=== PATIENT | female | born 1945 | race Caucasian/White ===

== ENCOUNTER → 2022-10-17 13:38 | Outpatient (CLI) | payer OTHER, SELFPAY ==
--- NOTE | 2022-10-17 | DI.MRI.S_ITS ---
PROCEDURE: MR KNEE LT WO CON INDICATIONS: Pain in left knee TECHNIQUE: Noncontrast sagittal PD fast spin echo and T2 fast spin echo with fat saturation, sagittal 3-D FLASH with fat saturation; coronal T1 spin echo and PD fast spin echo with fat saturation, and axial PD fast spin echo with fat saturation through the knee. COMPARISON: [facility] [place], CR, XR KNEE 4+ VIEWS LEFT, 09/24/2022, 14:51. FINDINGS: Image quality: Excellent. Menisci: Signal abnormality involving posterior horn of medial meniscus is seen extending to inferior articulating surface suggestive of oblique tear. The lateral meniscus is intact. The meniscal root ligaments appear intact. Cruciate ligaments: The anterior and posterior cruciate ligaments appear intact. Medial structures: The medial collateral ligament appears mildly thickened. The posterior oblique ligament, semimembranosus tendon insertions, oblique popliteal ligament, and meniscocapsular junction appear intact. Visualized portions of the pes anserinus tendons appear normal. No abnormal bursal fluid. Lateral structures: The lateral collateral ligament, long and short heads of the biceps femoris tendon appear intact. The popliteus tendon appears normal; the popliteofibular ligament appears intact. Iliotibial band appears normal. Anterior structures: The quadriceps and patellar tendons appear intact. Patellar alignment is normal. No femoral trochlear dysplasia or ventral trochlear prominence. No edema in the infrapatellar fat pad. Bones and cartilage: No bone marrow contusions or fractures. 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 Joint space: There is small knee joint fluid. There is a tiny House's cyst. Normal appearing synovial plicae are incidentally noted. IMPRESSION: 1. Complex oblique tear involving posterior horn of medial meniscus extending to inferior articulating surface. The lateral meniscus is intact. 2. The cruciate ligaments are intact. 3. Low-grade MCL sprain. 4. [id number] tricompartmental osteoarthritis and chondromalacia most notably in medial femoral tibial compartment. No fracture or dislocation. Small joint effusion and a tiny bakers cyst. Dictated by: Ki Colin M.D. on 10/19/2022 at 12:04 Approved by: Ki Colin M.D. on 10/19/2022 at 12:06
== END ==
PROVIDERS: Referring Provider Physician Assistant; Visit Provider Physician Assistant
DX: S83.232A Complex tear of medial meniscus, current injury, left knee, initial encounter (principal); S83.412A Sprain of medial collateral ligament of left knee, initial encounter; M17.12 Unilateral primary osteoarthritis, left knee; M94.262 Chondromalacia, left knee; M25.462 Effusion, left knee; M25.562 Pain in left knee
CPT/HCPCS: 73721

== ENCOUNTER → 2022-11-03 11:59 | Outpatient (CLI) | payer OTHER, SELFPAY ==
[2022-11-03 12:54] LABS: Add Manual Diff / Slide Review NO; Basophils Absolute Auto 0 /uL (0-100); Basophils Percent Auto 0.8 % (0-2); Eosinophils Absolute Auto 100 /uL (0-450); Hemoglobin 10.5 g/dL (12.0-16.0); Lymphocytes Absolute Auto 1600 /uL (1100-4500); Lymphocytes Percent Auto 26.8 % (25-40); Mean Corpuscular Hemoglobin 23.8 PG (26-34); Mean Corpuscular Volume 74.3 fL (80-100); Monocytes Absolute Auto 800 /uL (0-900); Monocytes Percent Auto 13.1 % (3-14); Neutrophils Absolute Auto 3500 /uL (1500-7000); Neutrophils Percent Auto 58.3 % (50-75); Platelet Count 338 X10^3/uL (150-400); Red Blood Cell Count 4.43 X10^6/uL (4.0-5.2); Red Cell Distribution Width 16.5 % (11.6-14.8)
[2022-11-03 13:59] LABS: BUN Creatinine Ratio 17.5 (6-22); Blood Urea Nitrogen 14 mg/dL (7-17); Calcium 9.3 mg/dL (8.4-10.2); Carbon Dioxide 31 mmol/L (22-32); Chloride 102 mmol/L (98-107); Estimated Glomerular Filt Rate > 60 mL/min (>60); Glucose 92 mg/dL (80-110); HEMOLYSIS < 15 (0-50); Potassium 4.6 mmol/L (3.4-5.1); Sodium 139 mmol/L (137-145)
[2022-11-03 15:33] LABS: Appearance Urine UA CLEAR; Bilirubin Urine UA NEGATIVE (NEGATIVE); Color Urine UA YELLOW; Glucose Urine UA NEGATIVE (Negative); Ketones Urine UA NEGATIVE (NEGATIVE); Leukocyte Esterase Urine UA NEGATIVE (NEGATIVE); Nitrite Urine UA NEGATIVE (Negative); Occult Blood Urine UA NEGATIVE (Negative); Protein Urine UA NEGATIVE (Negative); Specific Gravity Urine UA 1.025 (1.000-1.035); Urobilinogen Urine UA 0.2 E.U./dL (0.2)
[2022-11-03 15:34] LABS: pH Urine UA 5.5 (4.5-8.0)
[2022-11-03 15:51] LABS: Bacteria Urine None Seen; Culture Indicated Urine Cult Not Indicated; RBC Urine 0-1/HPF (0-5/HPF); Squamous Epithelial Cell Urine 1-5 /HPF (0-5/HPF); WBC Urine None Seen (0-5/HPF)
[2022-11-04 03:36] LABS: Labcorp Hemoglobin (Hb) A1c 6.1 % (4.8-5.6)
== END ==
PROVIDERS: Referring Provider Orthopaedic Surgery; Visit Provider Orthopaedic Surgery
DX: Z01.818 Encounter for other preprocedural examination (principal); R73.9 Hyperglycemia, unspecified; Z01.812 Encounter for preprocedural laboratory examination; N39.0 Urinary tract infection, site not specified
CPT/HCPCS: 36415; 80048; 81001; 83036; 85025; 93005; 93010

== ENCOUNTER 2022-12-11 14:37 | Observation (INO) | payer OTHER, SELFPAY ==
[2022-12-11] VITALS (17 sets, daily range): BP systolic 110–137; BP diastolic 59–79; PULSE 69–95; RESP 11–24; TEMP 36–36.6; O2SAT 93–100; BMI 25.6
[2022-12-11 15:17] LABS: Add Manual Diff / Slide Review NO; Basophils Absolute Auto 100 /uL (0-100); Basophils Percent Auto 0.9 % (0-2); Eosinophils Absolute Auto 100 /uL (0-450); Eosinophils Percent Auto 1.8 % (2-4); Hematocrit 23.5 % (36-46); Hemoglobin 7.8 g/dL (12.0-16.0); Lymphocytes Absolute Auto 1400 /uL (1100-4500); Lymphocytes Percent Auto 17.6 % (25-40); Mean Corpuscular HGB Conc 33.3 % (30-36); Mean Corpuscular Volume 72.1 fL (80-100); Monocytes Absolute Auto 900 /uL (0-900); Monocytes Percent Auto 11.8 % (3-14); Neutrophils Absolute Auto 5400 /uL (1500-7000); Neutrophils Percent Auto 67.9 % (50-75); Platelet Count 550 X10^3/uL (150-400); Red Blood Cell Count 3.26 X10^6/uL (4.0-5.2); Red Cell Distribution Width 18.8 % (11.6-14.8); White Blood Cell Count 7.9 X10^3/uL (4.5-11.0)
[2022-12-11 15:27] LABS: PTT Partial Thromboplastin Tim 28 SECONDS (26-36)
[2022-12-11 15:28] LABS: Alanine Aminotransferase 20 IU/L (<35); Albumin 3.9 g/dL (3.5-5.0); Albumin Globulin Ratio 1.3 (1.0-2.8); Alkaline Phosphatase 166 U/L (38-126); Aspartate Aminotransferase 29 IU/L (14-36); BUN Creatinine Ratio 20.2 (6-22); Bilirubin Total 0.3 mg/dL (0.2-1.3); Blood Urea Nitrogen 18 mg/dL (7-17); Calcium 9.5 mg/dL (8.4-10.2); Carbon Dioxide 28 mmol/L (22-32); Chloride 98 mmol/L (98-107); Estimated Glomerular Filt Rate > 60 mL/min (>60); Globulin 3.1 g/dL (1.7-4.1); Glucose 127 mg/dL (80-110); HEMOLYSIS < 15 (0-50); Potassium 3.5 mmol/L (3.4-5.1); Sodium 135 mmol/L (137-145)
[2022-12-11] MEDS: PANTOPRAZOLE 40 MG VIAL 80 MG IV (15:30)
[2022-12-11] MEDS: ONDANSETRON 4 MG/2 ML INJ IV (15:30)
--- NOTE | 2022-12-11 15:50 | ED.GIBLEED ---
HPI - GI Bleed General Chief complaint: GI Bleed Stated complaint: BP 116/82 now 92/59 Time Seen by Provider: 12/11/22 15:18 Source: patient Mode of arrival: Wheelchair History of Present Illness HPI Narrative: 77-year-old female. Does take anti-inflammatories and also aspirin. Within the past month had a left total knee replacement. She stated that since that time she is been taking ibuprofen and also aspirin per recommendations of her orthopedic surgeon. She states that she is been having dark colored stool since the surgery that has been worsening over the past couple days. She states she is getting lightheaded when she stands up. Becoming dizzy. It is not every time she stands up but she was not able to go to physical therapy during her most recent appointment because of how she was feeling. She denies chest pain. No prior abdominal surgeries. She denies any vomiting of blood. No blood in her urine. Related Data Allergies Allergy/AdvReac Type Severity Reaction Status Date / Time Sulfa (Sulfonamide Allergy Hives Verified 12/11/22 14:47 Antibiotics) Review of Systems Constitutional Constitutional: Reports system reviewed and no additional complaints, except as documented Cardiovascular Cardiovascular: Reports system reviewed and no additional complaints, except as documented Respiratory Respiratory: Reports system reviewed and no additional complaints, except as documented Gastrointestinal Gastrointestinal: Reports system reviewed and no additional complaints, except as documented Integumentary/Breasts Skin/Breast: Reports system reviewed and no additional complaints, except as documented Neurologic Neurologic: Reports system reviewed and no additional complaints, except as documented Hematologic/Lymphatic On Anticoagulants: No Patient History Social History Smoking Status: Never smoker Smoking Status: Never smoker alcohol intake frequency: holidays/special occasions only Substance Use Type: does not use Exam Initial Vital Signs Initial Vital Signs: Vital Signs Temperature 97.5 F L 12/11/22 14:40 Pulse Rate 89 12/11/22 14:40 Respiratory Rate 18 12/11/22 14:40 Blood Pressure 110/65 12/11/22 14:40 Pulse Oximetry 98 12/11/22 14:40 Oxygen Delivery Method Room Air 12/11/22 14:40 HENMT Head: normal to inspection and normocephalic Resp Effort & Inspection: normal respiratory effort Auscultation: clear to auscultation bilaterally Cardio Rate: regular rate Rhythm: regular rhythm GI Inspection: normal to inspection Palpation: soft and No tender Neuro General: patient alert, patient awake, patient oriented x3 and moves all extremities Extrem General: normal to inspection and capillary refill normal Course Orders Ordered: ED Orders 12/11/22 14:00 Complete Blood Count AUTO DIFF Stat Comprehensive Metabolic Panel Stat PTT Partial Thromboplastin Chad Stat Packed Cells Stat Prothrombin Time INR Stat Type and Screen Stat 12/11/22 14:48 EKG-12 Lead Stat 12/11/22 16:40 Consult to General Surgery Stat Ondansetron HCl (Ondansetron 4 Mg/2 Ml Inj) 4 mg IV NOW PRN PRN Reason: Nausea And Vomiting Last Admin: 12/11/22 15:30 Dose: 4 mg Documented By: CARROLL Ondansetron HCl (Ondansetron 4 Mg Odt) 4 mg SL NOW PRN PRN Reason: Nausea And Vomiting Discontinued Medications Pantoprazole Sodium (Pantoprazole 40 Mg Vial) 80 mg IV NOW ONE Stop: 12/11/22 14:49 Last Admin: 12/11/22 15:30 Dose: 80 mg Documented By: CARROLL Vital Signs Vital signs: Vital Signs - 8 hr 12/11/22 14:40 12/11/22 14:58 12/11/22 14:58 Temperature 97.5 F L Pulse Rate 89 93 H Respiratory Rate 18 Blood Pressure 110/65 121/70 Pulse Oximetry 98 98 Oxygen Delivery Method Room Air 12/11/22 15:00 12/11/22 15:00 12/11/22 15:30 Temperature Pulse Rate 95 H Respiratory Rate 16 Blood Pressure 124/69 122/68 Pulse Oximetry 97 Oxygen Delivery Method 12/11/22 15:30 12/11/22 16:04 12/11/22 16:06 Temperature Pulse Rate 84 92 H 82 Respiratory Rate 23 19 18 Blood Pressure Pulse Oximetry 96 96 Oxygen Delivery Method 12/11/22 16:06 12/11/22 16:32 12/11/22 16:30 Temperature 97.8 F Pulse Rate 79 Respiratory Rate 16 Blood Pressure 121/63 113/61 113/61 Pulse Oximetry Oxygen Delivery Method 12/11/22 16:30 Temperature Pulse Rate 77 Respiratory Rate 20 Blood Pressure Pulse Oximetry 97 Oxygen Delivery Method MDM - GI Bleed Lab Data Attestation: I reviewed the patient's lab results. 12/11/22 14:00 12/11/22 14:00 Labs: Lab Results 12/11/22 12/11/22 12/11/22 Range/Units 14:00 14:00 14:00 WBC 7.9 (4.5-11.0) X10^3/uL RBC 3.26 L (4.0-5.2) X10^6/uL Hgb 7.8 L (12.0-16.0) g/dL Hct 23.5 L (36-46) % MCV 72.1 L (80-100) fL MCH 24.0 L (26-34) PG MCHC 33.3 (30-36) % RDW 18.8 H (11.6-14.8) % Plt Count 550 H (150-400) X10^3/uL Neut % (Auto) 67.9 (50-75) % Lymph % (Auto) 17.6 L (25-40) % Victoria % (Auto) 11.8 (3-14) % Eos % (Auto) 1.8 L (2-4) % Baso % (Auto) 0.9 (0-2) % Neut # (Auto) 5400 (8746-8593) /uL Lymph # (Auto) 1400 (8277-1390) /uL Victoria # (Auto) 900 (0-900) /uL Eos # (Auto) 100 (0-450) /uL Baso # (Auto) 100 (0-100) /uL PT 12.0 (10.1-12.7) SECONDS INR 1.0 (0.9-1.3) APTT 28 (26-36) SECONDS Sodium 135 L (137-145) mmol/L Potassium 3.5 (3.4-5.1) mmol/L Chloride 98 (98-107) mmol/L Carbon Dioxide 28 (22-32) mmol/L BUN 18 H (7-17) mg/dL Creatinine 0.89 (0.52-1.04) mg/dL Estimated GFR > 60 (>60) mL/min BUN/Creatinine Ratio 20.2 (6-22) Glucose 127 H (80-110) mg/dL Calcium 9.5 (8.4-10.2) mg/dL Total Bilirubin 0.3 (0.2-1.3) mg/dL AST 29 (14-36) IU/L ALT 20 (<35) IU/L Alkaline Phosphatase 166 H (38-126) U/L Total Protein 7.0 (6.3-8.2) g/dL Albumin 3.9 (3.5-5.0) g/dL Globulin 3.1 (1.7-4.1) g/dL Albumin/Globulin Ratio 1.3 (1.0-2.8) Blood Type Antibody Screen Crossmatch 12/11/22 Range/Units 14:00 WBC (4.5-11.0) X10^3/uL RBC (4.0-5.2) X10^6/uL Hgb (12.0-16.0) g/dL Hct (36-46) % MCV (80-100) fL MCH (26-34) PG MCHC (30-36) % RDW (11.6-14.8) % Plt Count (150-400) X10^3/uL Neut % (Auto) (50-75) % Lymph % (Auto) (25-40) % Victoria % (Auto) (3-14) % Eos % (Auto) (2-4) % Baso % (Auto) (0-2) % Neut # (Auto) (0254-7264) /uL Lymph # (Auto) (9680-6662) /uL Victoria # (Auto) (0-900) /uL Eos # (Auto) (0-450) /uL Baso # (Auto) (0-100) /uL PT (10.1-12.7) SECONDS INR (0.9-1.3) APTT (26-36) SECONDS Sodium (137-145) mmol/L Potassium (3.4-5.1) mmol/L Chloride (98-107) mmol/L Carbon Dioxide (22-32) mmol/L BUN (7-17) mg/dL Creatinine (0.52-1.04) mg/dL Estimated GFR (>60) mL/min BUN/Creatinine Ratio (6-22) Glucose (80-110) mg/dL Calcium (8.4-10.2) mg/dL Total Bilirubin (0.2-1.3) mg/dL AST (14-36) IU/L ALT (<35) IU/L Alkaline Phosphatase (38-126) U/L Total Protein (6.3-8.2) g/dL Albumin (3.5-5.0) g/dL Globulin (1.7-4.1) g/dL Albumin/Globulin Ratio (1.0-2.8) Blood Type A Negative Antibody Screen Negative Crossmatch See Detail Urine Dip Bedside Urine Glucose Negative Bedside Urine Bilirubin - Negative Bedside Urine Ketone - Negative Urine Specific [place] 1.010 Bedside Urine Occult Blood - Negative Bedside Urine pH 6.0 Bedside Urine Protein - Negative Bedside Urine Urobilinogen - Negative Bedside Urine Nitrite - Negative Bedside Urine Leukocytes - Negative Esterase ECG Data Attestation: I personally reviewed and interpreted this ECG as follows: Interpretation: Sinus rhythm Ventricular rate 94 Normal axis Normal QRS Nonspecific ST T wave changes MDM Narrative Medical decision making narrative: Compared to H&H 1 month ago patient is significantly decreased today. She is never had a blood transfusion in the past. We discussed the risks and benefits of this and I recommended that we give her a blood transfusion as this could very well be causing the symptoms that she is having. This is most likely caused by the anti-inflammatories and the aspirin that she takes. Because she is having melena and requiring a blood transfusion initially in the hospital would be beneficial. Discussed the case with Dr. Watt hospitalist on-call who will admit. Discussed need for admission with the patient who expressed understanding and agreement as well. Also discussed the case with Dr. Christie is on-call for General surgery who will see the patient after admission Discharge Plan Departure Patient Disposition: Admitted As Inpatient Clinical Impression: Acute GI bleeding, Symptomatic anemia Admit Date/Time: 12/11/22 16:43 Admit Provider: Alli Watt
--- NOTE | 2022-12-11 17:47 | P.HP_ITS ---
History of Present Illness History of Present Illness Date Patient Seen: 12/11/22 Time Patient Seen: 17:30 Chief complaint: BP 116/82 now 92/59 Narrative: Ms. Schultz is a 77W with PMH iron deficiency anemia, hiatal hernia, GERD, L TKA a couple weeks ago who presents to the hospital with black stools and fatigue. She notes that she has previously been diagnosed with anemia. She had to have iron infusions in the past, but is currently not on iron. She has had multiple EGD and colo in the past which have noted gastric ulcer and hiatal hernia. She has had a capsule endoscopy previously. She had a left TKA a couple weeks ago, prior to this she says her hemoglobin was in the 12s. After she was taking aspirin BID for dvt ppx, she was takin g400mg ibuproen q4, thought this has been weaned down. She has developed some left upper abdominal tenderness. She has noted new black stools for a week. She has fatigue, shortness of breath, dizzy/lightheaded. No vomiting blood, no brbpr. She was here in [place] seeing ortho and PT and felt poorly so presented to the ED. In the ED workup was done, vitals notable for afebrile, heart rate 80s, blood pressure 110s/60s. Labs reviewed and notable for WBC 7.9, hgb 7.8, plts 550. BUN 18, creatinine 0.89. She was ordered for blood and protonix and admitted for further treatment. [facility] Social History Smoking Status: Never smoker Meds Home Medications and Allergies Allergies Allergy/AdvReac Type Severity Reaction Status Date / Time Sulfa (Sulfonamide Allergy Hives Verified 12/11/22 14:47 Antibiotics) Review of Systems Review of Systems Narrative: 14 systems reviewed and negative aside from what is noted in HPI Exam Vital Signs (past 8 hours): - 12/11/22 14:40 12/11/22 14:58 12/11/22 14:58 Temperature 97.5 F L Pulse Rate 89 93 H Respiratory Rate 18 Blood Pressure 110/65 121/70 Pulse Oximetry 98 98 Oxygen Delivery Method Room Air 12/11/22 15:00 12/11/22 15:00 12/11/22 15:30 Temperature Pulse Rate 95 H Respiratory Rate 16 Blood Pressure 124/69 122/68 Pulse Oximetry 97 Oxygen Delivery Method 12/11/22 15:30 12/11/22 16:04 12/11/22 16:06 Temperature Pulse Rate 84 92 H 82 Respiratory Rate 23 19 18 Blood Pressure Pulse Oximetry 96 96 Oxygen Delivery Method 12/11/22 16:06 12/11/22 16:32 12/11/22 16:49 Temperature 97.8 F 97.9 F Pulse Rate 79 79 Respiratory Rate 16 16 Blood Pressure 121/63 113/61 117/65 Pulse Oximetry Oxygen Delivery Method 12/11/22 16:30 12/11/22 16:30 12/11/22 16:50 Temperature Pulse Rate 77 Respiratory Rate 20 Blood Pressure 113/61 117/65 Pulse Oximetry 97 Oxygen Delivery Method 12/11/22 16:50 12/11/22 17:00 12/11/22 17:00 Temperature Pulse Rate 80 78 Respiratory Rate 24 11 L Blood Pressure 110/59 L Pulse Oximetry 99 98 Oxygen Delivery Method Oxygen Delivery Method Room Air Narrative Exam Narrative: GEN: no acute dsitress CV: regular rate and rhythm PULM: clear bilaterally ABD: soft, mild LUQ tenderness, no rebound/guarding EXT: warm and well perfused, no edema Objective Labs 12/11/22 14:00 12/11/22 14:00 Labs: Laboratory Results - last 24 hr 12/11/22 12/11/22 12/11/22 14:00 14:00 14:00 WBC 7.9 RBC 3.26 L Hgb 7.8 L Hct 23.5 L MCV 72.1 L MCH 24.0 L MCHC 33.3 RDW 18.8 H Plt Count 550 H Neut % (Auto) 67.9 Lymph % (Auto) 17.6 L Wright % (Auto) 11.8 Eos % (Auto) 1.8 L Baso % (Auto) 0.9 Neut # (Auto) 5400 Lymph # (Auto) 1400 Wright # (Auto) 900 Eos # (Auto) 100 Baso # (Auto) 100 PT 12.0 INR 1.0 APTT 28 Sodium 135 L Potassium 3.5 Chloride 98 Carbon Dioxide 28 BUN 18 H Creatinine 0.89 Estimated GFR > 60 BUN/Creatinine Ratio 20.2 Glucose 127 H Calcium 9.5 Total Bilirubin 0.3 AST 29 ALT 20 Alkaline Phosphatase 166 H Total Protein 7.0 Albumin 3.9 Globulin 3.1 Albumin/Globulin Ratio 1.3 Blood Type Antibody Screen Crossmatch 12/11/22 14:00 WBC RBC Hgb Hct MCV MCH MCHC RDW Plt Count Neut % (Auto) Lymph % (Auto) Wright % (Auto) Eos % (Auto) Baso % (Auto) Neut # (Auto) Lymph # (Auto) Wright # (Auto) Eos # (Auto) Baso # (Auto) PT INR APTT Sodium Potassium Chloride Carbon Dioxide BUN Creatinine Estimated GFR BUN/Creatinine Ratio Glucose Calcium Total Bilirubin AST ALT Alkaline Phosphatase Total Protein Albumin Globulin Albumin/Globulin Ratio Blood Type A Negative Antibody Screen Negative Crossmatch See Detail Assessment & Plan Assessment & Plan narrative: 1. Acute symptomatic blood loss anemia from likely upper GI bleed -hemoglobin significantly down from recent at 7.8 -suspect etiology may be secondary to peptic inflammation from nsaids, aspirin, and hernia/GERD -transfused in the ED -trend hemoglobin closely -PPI BID -consult surgery for EGD -hold ASA/nsaids, lovenox for now 2. Recent L TKA -holding ASA for now -could consider lovenox on dc for dvt ppx if evidence of upper GI bleed I have discussed plan and obtained history from patient and family at bedside. I have discussed plan of care with ED physician, surgeon, and bedside nurse. I have reviewed labs, imaging. CODE: Full Proxy: Garry Schultz, Quality [facility] [place]s 'Current medications' to include all prescriptions, [id number] products, herbals, cannabis/cannabidiol products, and vitamin/mineral/dietary (nutritional) supplements. I have utilized all available resources to obtain, update, or review the patient?s current medications. [If Yes, STOP here]: Yes
[2022-12-11] MEDS: PANTOPRAZOLE 40 MG VIAL IV (20:11)
[2022-12-12] VITALS (12 sets, daily range): BP systolic 109–146; BP diastolic 50–80; PULSE 64–80; RESP 12–17; TEMP 35.7–36.6; O2SAT 92–100
--- NOTE | 2022-12-12 | PATH_ITS ---
[facility] Accession Number: [id number] No. of containers..01 Tissue . 01 Material submitted: . stomach - STOMACH BX . 01 Diagnosis: Stomach, Biopsy: Acute erosive gastritis. Negative for Helicobacter organisms by immunohistochemistry. Negative for intestinal metaplasia. Negative for dysplasia or malignancy. [facility] 12/18/2022 1246 Local . 01 Electronically signed: . Ricky Adler MD, PhD, Pathologist NPI- [id number] . 01 Gross description: . STOMACH BX: Received in formalin is 2 fragment(s) of veloz, soft tissue measuring 0.4 x 0.2 x 0.2 cm to 0.3 x 0.2 x 0.2 cm submitted entirely in 1 cassette(s) /AAY 12/16/2022 0541 Local . 01 Microscopic: . An immunohistochemical stain was performed to evaluate for Helicobacter organisms and is negative. The control stain showed appropriate reactivity. . * This test was developed and its performance characteristics determined by [facility]. It has not been cleared or approved by the U.S. Food and Drug Administration. The FDA has determined that such clearance or approval is not necessary. This test is used for clinical purposes. It should not be regarded as investigational or for research. . 01 Pathologist provided ICD-10: K29.70 . 01 CPT . 715743, [id number] Specimen Comment: A courtesy copy of this report has been sent to [facility] Pathology Performed at: 01 [facility] [address] [place] [address], [place], [place] [id number] MD Neville Hussein MD Phone: [phone]
[2022-12-12 05:24] LABS: Add Manual Diff / Slide Review NO; Basophils Absolute Auto 100 /uL (0-100); Eosinophils Absolute Auto 200 /uL (0-450); Eosinophils Percent Auto 3.1 % (2-4); Hematocrit 30.7 % (36-46); Hemoglobin 10.1 g/dL (12.0-16.0); Lymphocytes Absolute Auto 1400 /uL (1100-4500); Mean Corpuscular HGB Conc 32.8 % (30-36); Mean Corpuscular Hemoglobin 24.7 PG (26-34); Mean Corpuscular Volume 75.2 fL (80-100); Monocytes Absolute Auto 800 /uL (0-900); Monocytes Percent Auto 11.9 % (3-14); Neutrophils Absolute Auto 4300 /uL (1500-7000); Platelet Count 485 X10^3/uL (150-400); Red Blood Cell Count 4.08 X10^6/uL (4.0-5.2); White Blood Cell Count 6.8 X10^3/uL (4.5-11.0)
[2022-12-12 05:35] LABS: BUN Creatinine Ratio 15.7 (6-22); Blood Urea Nitrogen 14 mg/dL (7-17); Calcium 9.4 mg/dL (8.4-10.2); Carbon Dioxide 29 mmol/L (22-32); Chloride 103 mmol/L (98-107); Estimated Glomerular Filt Rate > 60 mL/min (>60); Glucose 96 mg/dL (80-110); HEMOLYSIS < 15 (0-50); Potassium 4.5 mmol/L (3.4-5.1); Sodium 138 mmol/L (137-145)
[2022-12-12] MEDS: PANTOPRAZOLE 40 MG VIAL IV (08:03)
--- NOTE | 2022-12-12 10:43 | CM.DANOTE ---
Addendum entered by NICOLE Tellez 12/12/22 10:47: ADD: Indp at baseline, has been using a FWW since having knee surgery. Patient says she needs to get the other knee done too Original Note: Initial DCP Assessment Note Pt is a 77yo female, resident of [place], presents from her Ortho/PT appt with low blood pressure, anemia, transfused with 2 units in the ER before admission to the [facility] PCP: Unknown Payer: [facility] Met w/patient this morning to introduce self and role. Patient had a knee replacement two weeks ago (outpatient surgery) and has been recovering at home w/spouse's assistance as needed. 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 CM team will plan to follow closely in case any DC needs or concerns arise. NICOLE Martinez Discharge Planning/Care Management CM Discharge Assessment Start: 12/12/22 10:41 Freq: Status: Active Protocol: Document 12/12/22 10:41 RICHARD (Rec: 12/12/22 10:43 RICHARD [id number]) Discharge Planning Assessment Assigned Room Worker NICOLE Stephens DPOA/Assigned Designee Name Garry Schultz, spouse Contact Information [phone] Advance Directives? No History Provided By Patient,Medical Record Prior Living Arrangements House Household Members spouse Type of transporation used prior to Drives own vehicle admit Independent with ADL's Yes Is patient alert and oriented? Yes Barriers to Discharge No Discharge Plan Home Transportation Arrangement Spouse Referrals Initiated None needed
[2022-12-12] MEDS: SODIUM CHLORIDE 0.9% 1,000 ML 125 ML IV (10:47)
--- NOTE | 2022-12-12 10:53 | PM.CN ---
History of Present Illness Consult details Date Patient Seen: 12/12/22 Time Patient Seen: 11:18 Chief complaint: BP 116/82 now 92/59 Reason for consult: GI bleed, black tarry stool, NSAID use Requesting provider: Alli Watt Narrative: 77-year-old female who presents to the emergency room. Her chief it is black tarry stools lightheadedness and feeling faint and weak. She has a known hiatal hernia and sees a internal medicine physician assistant named Rangel Worrell at [facility] near [place]. She is up-to-date on her screening colonoscopies and has had upper endoscopies frequently as well. Her last upper endoscopy was 2-3 years ago. Her mother had colon cancer and her father of stomach cancer, so she is regular with her screening. She has had anemia before and full workups for this. About 2 years ago her hemoglobin was low and she underwent capsule endoscopy in addition to EGD and colonoscopy. Ultimately the hiatal hernia and a small ulcer was identified as the probable source of the problem and she was given iron infusion under the care of Dr. Chun at [facility] resulting in her hemoglobin increasing to 12. About 3 weeks ago now she had a knee replacement done here at [facility] by Анна Sanchez. Preoperatively her hemoglobin was 10.7 so she knew that perhaps there was something beforehand but the decision was made to proceed with the surgery. She was doing well immediately postoperatively for at least a week. She does not like taking strong narcotic medication(or any medication at all for that matter) and so it was advised she begin taking Tylenol ibuprofen and an 81 mg aspirin daily. About a week after surgery she started to notice some black stools that were familiar to her from previous episodes. She is not on any antacid medication. In the past she is taken omeprazole only as needed. She noticed that she was progressively more faint and tired over the preceding week. And she had an episode of feeling lightheaded and faint about 1 week prior to her presentation. She thought perhaps it was just part of her recovery from surgery at that time. She had another episode about 2 days ago in her kitchen that she felt coming on so quickly that she could not go to lay down she had to sit down on the floor. She was sitting on the floor for about 35 minutes before she or her was able to get her up and move around. After this episode she came to [facility] ER for evaluation. She was found to have hemoglobin of 6.8 but though remained lightheaded was not tachycardic or hypotensive. She received a blood transfusion in the emergency room of either 1 or 2 units. Meds Home Medications and Allergies Home Medications Medication Instructions Recorded Confirmed Type hydrochlorothiazide 12.5 mg tablet 12.5 mg PO DAILY 12/11/22 12/11/22 History lisinopril 20 mg tablet 20 mg PO DAILY 12/11/22 12/11/22 History oxycodone 5 mg tablet 5 mg PO Q4-6H PRN Pain, Moderate 12/11/22 12/11/22 History Allergies Allergy/AdvReac Type Severity Reaction Status Date / Time Sulfa (Sulfonamide Allergy Hives Verified 12/11/22 14:47 Antibiotics) Exam Vital Signs (past 8 hours): - 12/12/22 05:50 12/12/22 08:31 Temperature 96.5 F L 96.7 F L Pulse Rate 77 72 Respiratory Rate 16 16 Blood Pressure 129/80 126/77 Pulse Oximetry 97 96 Oxygen Flow Rate 0 0 Oxygen Delivery Method Room Air Oxygen Flow Rate 0 Const General: cooperative, healthy appearing, comfortable and No acute distress Orientation: alert, awake and oriented x3 HENMT Head: normal to inspection Mouth: oral mucosae normal Eyes General: appearance normal, both eyes and all related structures Resp Effort & Inspection: normal respiratory effort and able to speak in complete sentences Cardio Pulses: radial pulses present GI Palpation: soft and tender (Mild epigastric tenderness) Extrem Other: Left Knee replacement wound is clean dry and intact. mild lower extremity edema Objective Labs 12/12/22 04:55 12/12/22 04:55 Labs: Laboratory Results - last 24 hr 12/11/22 12/11/22 12/11/22 14:00 14:00 14:00 WBC 7.9 RBC 3.26 L Hgb 7.8 L Hct 23.5 L MCV 72.1 L MCH 24.0 L MCHC 33.3 RDW 18.8 H Plt Count 550 H Neut % (Auto) 67.9 Lymph % (Auto) 17.6 L [place] % (Auto) 11.8 Eos % (Auto) 1.8 L Baso % (Auto) 0.9 Neut # (Auto) 5400 Lymph # (Auto) 1400 [place] # (Auto) 900 Eos # (Auto) 100 Baso # (Auto) 100 PT 12.0 INR 1.0 APTT 28 Sodium 135 L Potassium 3.5 Chloride 98 Carbon Dioxide 28 BUN 18 H Creatinine 0.89 Estimated GFR > 60 BUN/Creatinine Ratio 20.2 Glucose 127 H Calcium 9.5 Total Bilirubin 0.3 AST 29 ALT 20 Alkaline Phosphatase 166 H Total Protein 7.0 Albumin 3.9 Globulin 3.1 Albumin/Globulin Ratio 1.3 Blood Type Antibody Screen Crossmatch 12/11/22 12/12/22 12/12/22 14:00 04:55 04:55 WBC 6.8 RBC 4.08 Hgb 10.1 L Hct 30.7 L MCV 75.2 L D MCH 24.7 L MCHC 32.8 RDW 18.0 H Plt Count 485 H Neut % (Auto) 63.0 Lymph % (Auto) 21.0 L [place] % (Auto) 11.9 Eos % (Auto) 3.1 Baso % (Auto) 1.0 Neut # (Auto) 4300 Lymph # (Auto) 1400 [place] # (Auto) 800 Eos # (Auto) 200 Baso # (Auto) 100 PT INR APTT Sodium 138 Potassium 4.5 Chloride 103 Carbon Dioxide 29 BUN 14 Creatinine 0.89 Estimated GFR > 60 BUN/Creatinine Ratio 15.7 Glucose 96 Calcium 9.4 Total Bilirubin AST ALT Alkaline Phosphatase Total Protein Albumin Globulin Albumin/Globulin Ratio Blood Type A Negative Antibody Screen Negative Crossmatch See Detail PFSH Social History household members: spouse Tobacco & Substance Use Smoking Status: Never smoker Assessment & Plan Assessment and plan (1) Acute GI bleeding: Status: Acute Plan I discussed the risks benefits and alternatives of EGD with Ms. Schultz who has had many before understands the process as well as the risks quite well. She would like to proceed today. She wants to understand what the diagnosis is and make sure that there is no cancer or anything concerning in her esophagus or stomach. She specifically asks for me to biopsy anything that looks abnormal. She told a story about her father stomach cancer having been identified and described with thickened mucosa a year prior to his diagnosis because though they saw the thickened mucosa it was never biopsied. Will proceed with EGD today
--- NOTE | 2022-12-12 13:01 | P.OP.EGD_ITS ---
Operative Date/Time/Diagnoses Date of procedure: 12/12/22 Time of procedure: 13:01 Pre-op diagnosis: GI bleeding, melena NSAID use Post-op diagnosis: same Procedure & Clinicians Study performed: EGD and biopsy Same procedure as scheduled: Yes Indications: Black tarry stools for at least a week with decreased hemoglobin lightheadedness. NSAID use since knee replacement 3 weeks ago Surgeon: Blanche Christie Procedure Notes Procedure in detail: Patient was taken to the endoscopy suite and placed supine. A time-out was performed. With the help of anesthesiologist conscious sedation was induced and monitored throughout the procedure. A bite block was placed. The EGD scope was placed into the mouth and advanced into the esophagus without difficulty. The esophagus appeared appeared normal photographs were obtained. There was a large hiatal hernia that was seen and photographed as well. Upon entry into the intra-abdominal portion of the stomach severe gastritis was demonstrated. There were several very small punctate ulcers. This was photographed and biopsied. The pylorus appeared normal this was photographed, the duodenum was entered and photographed it also appeared normal. The scope was then withdrawn into the stomach and retroflexed to obtain some additional photographs of the large hiatal hernia. There was no irritation or abnormality that of concern surrounding the hiatal hernia. The scope was then withdrawn. The patient tolerated the procedure well and went in good condition to the postoperative care unit. Findings: gastritis Specimen(s): other (Gastritis and small ulcers were biopsied) Impression: This looks like NSAID related gastritis. There was no active bleeding. Post-procedure Recommendations: No ASA/NSAIDs and Start medication(s) (Protonix 2-4 weeks) Plan for aftercare: I would recommend starting and maintaining on Protonix discontinuing use of NSAIDs and following up with her poacher wringer operator in 2-4 weeks if that is possible. If not we can see her at [facility] as well in follow-up. I discussed the above recommendations with her who was waiting in the room for her today.
--- NOTE | 2022-12-12 14:25 | PM.DS.1 ---
History of Present Illness History of Present Illness Chief complaint: BP 116/82 now 92/59 Narrative: Per history and physical: Ms. Schultz is a 77W with PMH iron deficiency anemia, hiatal hernia, GERD, L TKA a couple weeks ago who presents to the hospital with black stools and fatigue. She notes that she has previously been diagnosed with anemia. She had to have iron infusions in the past, but is currently not on iron. She has had multiple EGD and colo in the past which have noted gastric ulcer and hiatal hernia. She has had a capsule endoscopy previously. She had a left TKA a couple weeks ago, prior to this she says her hemoglobin was in the 12s. After she was taking aspirin BID for dvt ppx, she was takin g400mg ibuproen q4, thought this has been weaned down. She has developed some left upper abdominal tenderness. She has noted new black stools for a week. She has fatigue, shortness of breath, dizzy/lightheaded. No vomiting blood, no brbpr. She was here in [place] seeing ortho and PT and felt poorly so presented to the ED. In the ED workup was done, vitals notable for afebrile, heart rate 80s, blood pressure 110s/60s. Labs reviewed and notable for WBC 7.9, hgb 7.8, plts 550. BUN 18, creatinine 0.89. She was ordered for blood and protonix and admitted for further treatment. Discharge Providers Provider Date of admission: 12/11/22 16:43 Discharge Date: 12/12/22 Primary care physician: Doctor Tia MD Consults: 12/11/22 18:18 Consult to General Surgery Routine Comment: Consulting Provider: Blanche Christie Reason for consultation: gi bleed Has provider been notified: Yes Discharge provider: Lorena Hatch MD Summary Hospital Course Discharge Diagnosis: 1. Gastritis 2. Small ulcers, felt to be secondary to NSAIDs 3. Acute blood loss anemia, status post 2 units of packed red blood cells 4. Acute upper GI bleed due to above 5. GERD 6. Recent left TKA Hospital Course: Patient was admitted with complaints of black tarry stools over the last week. Two weeks ago she underwent a left total knee arthroplasty. She was prescribed oxycodone but did not wish to take it. She ultimately ended up alternating Tylenol and ibuprofen for pain management as well as naproxen at bedtime to help with sleep. She developed some left upper quadrant pain and black tarry stools. She states she backed off on the medications to twice daily but continued to be symptomatic. She ultimately presented to the emergency department complaining of pain and weakness as well as black tarry stools. She was admitted with a hemoglobin of 7.8. She required 2 units of packed red blood cells with improved hemoglobin up to 10.1. She underwent EGD on the date of discharge which revealed severe gastritis as well as small ulcers that were felt to be NSAID induced. Recommendation was to continue PPI and follow-up with her outpatient director dental services. She is been followed by [facility] for quite some time as her father from gastric cancer and her mother had colon cancer. Status at Discharge Cognitive/behavioral status at discharge: oriented and at baseline, oriented Functional status at discharge: independent ambulation Overall status at discharge: patient is progressing back to baseline Time Spent with Patient Time spent: Greater than 30 minutes Exam Vital Signs (past 8 hours): - 12/12/22 08:31 12/12/22 12:15 12/12/22 12:20 Temperature 96.7 F L 97.8 F Pulse Rate 72 80 76 Respiratory Rate 16 16 14 Blood Pressure 126/77 109/50 L 112/73 Pulse Oximetry 96 92 96 Oxygen Delivery Method Room Air Room Air Oxygen Flow Rate 0 12/12/22 12:25 12/12/22 12:30 12/12/22 12:45 Temperature 97.7 F Pulse Rate 79 74 64 Respiratory Rate 12 14 12 Blood Pressure 114/66 120/71 110/66 Pulse Oximetry 97 95 96 Oxygen Delivery Method Room Air Room Air Room Air Oxygen Flow Rate 12/12/22 12:56 12/12/22 13:30 12/12/22 14:00 Temperature 97.1 F L 96.3 F L 96.3 F L Pulse Rate 65 68 70 Respiratory Rate 16 17 16 Blood Pressure 143/77 H 146/67 H 119/60 Pulse Oximetry 99 98 100 Oxygen Delivery Method Oxygen Flow Rate 0 0 0 Oxygen Delivery Method Room Air Oxygen Flow Rate 0 Narrative Exam Narrative: GEN: Very pleasant elderly female, Alert and oriented x 3, NAD HEENT:NC, Face symmetric CHEST: Respiratory excursions symmetric, CTAB CV: RRR, no M/R/G ABD: Soft, NT/ND, BT present in all 4 quadrants, no organomegaly or masses EXTR: warm, well perfused, no C/C/E SKIN: warm and dry, no rash NEURO: Alert and oriented x 3, nonfocal Objective Labs 12/12/22 04:55 12/12/22 04:55 Labs: Laboratory Results - last 24 hr 12/11/22 12/11/22 12/11/22 14:00 14:00 14:00 WBC 7.9 RBC 3.26 L Hgb 7.8 L Hct 23.5 L MCV 72.1 L MCH 24.0 L MCHC 33.3 RDW 18.8 H Plt Count 550 H Neut % (Auto) 67.9 Lymph % (Auto) 17.6 L [place] % (Auto) 11.8 Eos % (Auto) 1.8 L Baso % (Auto) 0.9 Neut # (Auto) 5400 Lymph # (Auto) 1400 [place] # (Auto) 900 Eos # (Auto) 100 Baso # (Auto) 100 PT 12.0 INR 1.0 APTT 28 Sodium 135 L Potassium 3.5 Chloride 98 Carbon Dioxide 28 BUN 18 H Creatinine 0.89 Estimated GFR > 60 BUN/Creatinine Ratio 20.2 Glucose 127 H Calcium 9.5 Total Bilirubin 0.3 AST 29 ALT 20 Alkaline Phosphatase 166 H Total Protein 7.0 Albumin 3.9 Globulin 3.1 Albumin/Globulin Ratio 1.3 Blood Type Antibody Screen Crossmatch 12/11/22 12/12/22 12/12/22 14:00 04:55 04:55 WBC 6.8 RBC 4.08 Hgb 10.1 L Hct 30.7 L MCV 75.2 L D MCH 24.7 L MCHC 32.8 RDW 18.0 H Plt Count 485 H Neut % (Auto) 63.0 Lymph % (Auto) 21.0 L [place] % (Auto) 11.9 Eos % (Auto) 3.1 Baso % (Auto) 1.0 Neut # (Auto) 4300 Lymph # (Auto) 1400 [place] # (Auto) 800 Eos # (Auto) 200 Baso # (Auto) 100 PT INR APTT Sodium 138 Potassium 4.5 Chloride 103 Carbon Dioxide 29 BUN 14 Creatinine 0.89 Estimated GFR > 60 BUN/Creatinine Ratio 15.7 Glucose 96 Calcium 9.4 Total Bilirubin AST ALT Alkaline Phosphatase Total Protein Albumin Globulin Albumin/Globulin Ratio Blood Type A Negative Antibody Screen Negative Crossmatch See Detail [facility] Social History household members: spouse Smoking Status: Never smoker Discharge Plan Discharge Plan Patient Disposition: Home Provider Discharge Comment: You were found to have severe gastritis and some small ulcers that appear to be related to NSAIDs. Stop aspirin, ibuprofen and naproxen (aleve). Avoid alcohol while recovering from your GI bleeding. Continue taking pantoprazole daily (Recommend taking x 4-8 weeks; consider ongoing treatment based on your GERD symptoms). Follow up with your usual GI doctor as soon as you can get an appointment. You received 2 units of blood while hospitalized. Return to the ED for: Recurrent black or tarry stools or vomit that looks like coffee grounds Fainting Inability to hold down food/liquids Ask Dr. Sanchez to recheck a CBC after your next visit with her. Recommend establishing w/a new PCP. [facility] or consider [facility]. Discharge orders & Medications Prescriptions: New tramadol 50 mg tablet 50 mg PO Q8H PRN (Reason: pain) Qty: 10 0RF pantoprazole 40 mg tablet,delayed release (DR/EC) 40 mg PO DAILY Qty: 30 1RF Continued lisinopril 20 mg Tablet 20 mg PO DAILY hydrochlorothiazide 12.5 mg tablet 12.5 mg PO DAILY Discontinued oxycodone 5 mg tablet 5 mg PO Q4-6H PRN (Reason: Pain, Moderate) Follow up/Referrals: Blacnhe Christie MD [Physician] - (Please do not hesitate to call the office of the [facility] with any questions or concerns. If you are unable to see your director dental services in a timely way you can call our office for follow-up.) Doctor Weber MD [Primary Care Provider] - Diet/Activity/Treatments Diet: Diet as Tolerated and Regular Activity: As tolerated. Continue increasing your activity as your knee allows. Visit Report/Discharge Packet Instructions: DI for Gastroesophageal Reflux Disease (GERD), DI for Gastritis, DI for Gastric Ulcer, DI for Hiatal Hernia Stand Alone Forms: Patient Portal/API, Stroke Signs & Symptoms, EGD Result: [facility] Surg Discharge Data Primary Care Provider: Doctor Tia
== END 2022-12-12 17:06 | disposition home or self-care (01) ==
LOC: ED 16:40 → AC 17:33
PROVIDERS: Surgery; Admitting Provider Internal Medicine; Emergency Provider Emergency Medicine; Referring Provider Emergency Medicine; Visit Provider Internal Medicine
PROC: 0DJ08ZZ Inspection of Upper Intestinal Tract, Via Natural or Artificial Opening Endoscopic (ICD-10-PCS; CPT 43235; principal; 2022-12-12 12:00)
DX: K29.70 Gastritis, unspecified, without bleeding (principal); D62 Acute posthemorrhagic anemia; K44.9 Diaphragmatic hernia without obstruction or gangrene; K25.9 Gastric ulcer, unspecified as acute or chronic, without hemorrhage or perforation; K21.9 Gastro-esophageal reflux disease without esophagitis; Z96.652 Presence of left artificial knee joint
CPT/HCPCS: 43239; 36415; 36430; 80048; 80053; 81003; 85025; 85610; 85730; 86850; 86900; 86901; 93005; 93010; 96374; 96375; 96376; 99232; 99284; G0378; P9016; C9113; J2405; J2704; J3010

== ENCOUNTER → 2022-12-28 11:08 | Outpatient (CLI) | payer OTHER, SELFPAY ==
[2022-12-11 19:14] VITALS: BMI 25.6
--- NOTE | 2022-12-28 | DI.US.S_ITS ---
PROCEDURE: US PERIPH VENOUS LOW EXTREM LT INDICATIONS: PAIN AND SWELLING TECHNIQUE: Real-time imaging, as well as color and pulse Doppler interrogation, were performed of the lower extremity deep veins from the inguinal ligament to the popliteal fossa, with documentation of the visualized calf veins. COMPARISON: [facility], , MR KNEE LT WO CON, 10/17/2022, 13:58. FINDINGS: Calf vein deep venous thrombosis can be seen with both peroneal veins and both posterior tibial veins occluded. The common femoral, femoral, popliteal are normally compressible, and free of intraluminal thrombus. Color and pulse Doppler demonstrate normal phasic intraluminal flow. There is normal augmentation response to distal compression maneuver. There is a focal fluid collection seen at the level of the knee on the left anteriorly and medially measuring 6.1 x 4.8 x 0.7 cm. IMPRESSION: Calf vein deep venous thrombosis seen. Focal fluid collection seen at the level of the knee. Note: Concordant preliminary findings given by the interlocking pavement installer upon the completion of the examination to Dr. Mancia. Dictated by: Chema Liu M.D. on 12/28/2022 at 10:55 Approved by: Chema Liu M.D. on 12/28/2022 at 10:57
== END ==
PROVIDERS: PCP Internal Medicine; Referring Provider Internal Medicine; Visit Provider Internal Medicine
DX: I82.442 Acute embolism and thrombosis of left tibial vein (principal); I82.452 Acute embolism and thrombosis of left peroneal vein; M79.605 Pain in left leg
CPT/HCPCS: 93971

== ENCOUNTER → 2023-02-08 09:43 | Outpatient (CLI) | payer OTHER, SELFPAY ==
[2022-12-11 19:14] VITALS: BMI 25.6
[2023-02-01 10:37] VITALS: BMI 25.6
--- NOTE | 2023-02-08 | DI.US.S_ITS ---
PROCEDURE: US [facility] VENOUS LOW EXTREM LT INDICATIONS: FOLLWO UP H/O DVT TECHNIQUE: Real-time imaging, as well as color and pulse Doppler interrogation, were performed of the lower extremity deep veins from the inguinal ligament to the popliteal fossa, with documentation of the visualized calf veins. COMPARISON: [facility], [facility] VENOUS LOW EXTREM LT, 12/28/2022, 11:12. FINDINGS: The common femoral, femoral, popliteal, and the visualized calf veins are normally compressible, and free of intraluminal thrombus. Color and pulse Doppler demonstrate normal phasic intraluminal flow. There is normal augmentation response to distal compression maneuver. The thrombus within the posterior tibial veins and the peroneal veins has resolved, with these veins now appearing compressible. IMPRESSION: The previously seen calf deep venous thrombosis has resolved. No findings of lower extremity deep venous thrombosis. Dictated by: Chema Liu M.D. on 02/08/2023 at 10:57 Approved by: Chema Liu M.D. on 02/08/2023 at 10:58
== END ==
PROVIDERS: PCP Internal Medicine; Referring Provider Orthopaedic Surgery; Visit Provider Orthopaedic Surgery
DX: Z09 Encounter for follow-up examination after completed treatment for conditions other than malignant neoplasm (principal); Z86.718 Personal history of other venous thrombosis and embolism; Z96.652 Presence of left artificial knee joint
CPT/HCPCS: 93971

== ENCOUNTER → 2023-06-21 06:49 | Outpatient (CLI) | payer MEDICARE, SELFPAY ==
[2023-02-01 10:37] VITALS: BMI 25.6
--- NOTE | 2023-06-21 06:50 | DI.US.S_ITS ---
PROCEDURE: US ARTERIAL DUPLEX LE BI INDICATIONS: Abnormal AUGUSTINE TECHNIQUE: Color and pulse Doppler interrogation was performed of both lower extremity arterial systems, with image documentation. COMPARISON: None. FINDINGS: Right lower extremity: Common femoral artery: 62 cm/sec, with triphasic flow. Deep femoral artery: 49 cm/sec, with triphasic flow. Proximal superficial femoral artery: 83 cm/sec, with triphasic flow. Mid superficial femoral artery: 63 cm/sec, with biphasic flow. Distal superficial femoral artery: 47 cm/sec, with biphasic flow. Popliteal artery: 42 cm/sec, with biphasic flow. Posterior tibial artery: 70 cm/sec, with biphasic flow. Anterior tibial artery/dorsalis pedis: 21 cm/sec, with biphasic flow. Fernandes-scale imaging description: Mild scattered atherosclerotic plaque Left lower extremity: Common femoral artery: 99 cm/sec, with triphasic flow. Deep femoral artery: 66 cm/sec, with biphasic (above baseline) flow. Proximal superficial femoral artery: 92 cm/sec, with triphasic flow. Mid superficial femoral artery: 87 cm/sec, with triphasic flow. Distal superficial femoral artery: 53 cm/sec, with biphasic (above baseline) flow. Popliteal artery: 52 cm/sec, with triphasic flow. Posterior tibial artery: 43 cm/sec, with biphasic flow. Anterior tibial artery/dorsalis pedis: 24 cm/sec, with biphasic flow. Fernandes-scale imaging description: Mild scattered atherosclerotic plaque IMPRESSION: Multiphasic waveforms of the bilateral lower extremity arterial vasculature with no velocity shift to suggest a hemodynamically significant stenosis. Dictated by: Luis Velazco M.D. on 06/21/2023 at 10:17 Approved by: Luis Velazco M.D. on 06/21/2023 at 10:19
== END ==
PROVIDERS: PCP Family Medicine; Referring Provider Family Medicine; Visit Provider Family Medicine
DX: Z86.718 Personal history of other venous thrombosis and embolism (principal); Z09 Encounter for follow-up examination after completed treatment for conditions other than malignant neoplasm
CPT/HCPCS: 93925

== ENCOUNTER → 2023-07-05 11:07 | Outpatient (CLI) | payer MEDICARE, SELFPAY ==
[2023-02-01 10:37] VITALS: BMI 25.6
[2023-07-05 12:04] LABS: Add Manual Diff / Slide Review NO; Basophils Absolute Auto 0 /uL (0-100); Basophils Percent Auto 0.8 % (0-2); Eosinophils Absolute Auto 100 /uL (0-450); Hematocrit 43.2 % (36-46); Hemoglobin 14.4 g/dL (12.0-16.0); Lymphocytes Absolute Auto 1100 /uL (1100-4500); Lymphocytes Percent Auto 18.9 % (25-40); Mean Corpuscular HGB Conc 33.4 % (30-36); Mean Corpuscular Hemoglobin 29.6 PG (26-34); Mean Corpuscular Volume 88.4 fL (80-100); Monocytes Absolute Auto 700 /uL (0-900); Neutrophils Absolute Auto 3800 /uL (1500-7000); Neutrophils Percent Auto 66.3 % (50-75); Platelet Count 287 X10^3/uL (150-400); Red Blood Cell Count 4.89 X10^6/uL (4.0-5.2); Red Cell Distribution Width 12.9 % (11.6-14.8); White Blood Cell Count 5.7 X10^3/uL (4.5-11.0)
[2023-07-05 12:19] LABS: HEMOLYSIS < 15 (0-50)
[2023-07-05 12:21] LABS: HEMOLYSIS < 15 (0-50); Iron 79 ug/dL (37-170)
[2023-07-05 12:35] LABS: Percent Iron Saturation 24 % (15-50); Total Iron Binding Capacity 324 ug/dL (265-497); Transferrin 273 mg/dL (206-381)
[2023-07-05 12:36] LABS: Alanine Aminotransferase 21 IU/L (<35); Albumin 4.2 g/dL (3.5-5.0); Albumin Globulin Ratio 1.3 (1.0-2.8); Alkaline Phosphatase 152 U/L (38-126); Aspartate Aminotransferase 29 IU/L (14-36); BUN Creatinine Ratio 14.8 (6-22); Bilirubin Total 0.9 mg/dL (0.2-1.3); Blood Urea Nitrogen 12 mg/dL (7-17); Calcium 9.7 mg/dL (8.4-10.2); Carbon Dioxide 31 mmol/L (22-32); Chloride 104 mmol/L (98-107); Estimated Glomerular Filt Rate > 60 mL/min (>60); Globulin 3.2 g/dL (1.7-4.1); Glucose 93 mg/dL (80-110); Potassium 4.4 mmol/L (3.4-5.1); Sodium 139 mmol/L (137-145); Total Protein 7.4 g/dL (6.3-8.2)
[2023-07-05 18:19] LABS: Ferritin 37 ng/mL (11-264)
== END ==
PROVIDERS: PCP Family Medicine; Referring Provider Family Medicine; Visit Provider Family Medicine
DX: D50.9 Iron deficiency anemia, unspecified (principal); I10 Essential (primary) hypertension
CPT/HCPCS: 36415; 80053; 82728; 83540; 83550; 85025

== ENCOUNTER → 2023-07-26 14:44 | Outpatient (CLI) | payer MEDICARE, SELFPAY ==
[2023-02-01 10:37] VITALS: BMI 25.6
--- NOTE | 2023-07-26 14:45 | DI.RAD.S_ITS ---
PROCEDURE: XR DEXA AXIAL SKELETON INDICATIONS: Screening for osteoporosis COMPARISON: None. FINDINGS: Lumbar Spine: Bone mineral density 0.803 g/cm2, T score -2.2. Left Hip: Bone mineral density 0.716 g/cm2, T score -1.9. Left Femoral Neck: Bone mineral density 0.584 g/cm2, T score -2.4. Right Hip: Bone mineral density 0.766 g/cm2, T score -1.4. Right Femoral Neck: Bone mineral density 0.600 g/cm2, T score -2.2. Fracture Risk Calculation (when applicable): 10-year fracture risk of a major osteoporotic fracture 15% and of a hip fracture 4.2%. (T score greater or equal to -1.0 to: NORMAL) (T score from -1.1 to -2.4: OSTEOPENIA) (T score less than or equal to -2.5: OSTEOPOROSIS) IMPRESSION: 1. Osteopenia of the lumbar spine and the bilateral hips. Follow-up guidelines as follows: Osteoporosis: Consider a repeat DEXA and Vertebral Fracture Assessment (VFA) exam in 2 years or sooner if medically necessary, to reassess this patient's status. Osteopenia: Consider a repeat DEXA in 2-3 years to reassess this patient's status, or if there is a new clinical indication. Normal: Consider a repeat DEXA in 5 years or sooner, or if there is a new clinical indication. Dictated by: Rozina Correa M.D. on 07/26/2023 at 16:16 Approved by: Rozina Correa M.D. on 07/26/2023 at 16:17
== END ==
LOC: RAD 14:44
PROVIDERS: PCP Family Medicine; Referring Provider Family Medicine; Visit Provider Family Medicine
DX: M85.89 Other specified disorders of bone density and structure, multiple sites (principal); Z78.0 Asymptomatic menopausal state
CPT/HCPCS: 77080

== ENCOUNTER 2023-11-15 09:36 | Emergency (ER) | payer MEDICARE, SELFPAY ==
[2023-02-01 10:37] VITALS: BMI 25.6
[2023-11-15] VITALS (9 sets, daily range): BP systolic 166–197; BP diastolic 77–96; PULSE 45–60; RESP 12–22; TEMP 36.4; O2SAT 97–99; BMI 26.5
--- NOTE | 2023-11-15 09:51 | EKG_ITS ---
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
--- NOTE | 2023-11-15 10:28 | DI.RAD.S_ITS ---
PROCEDURE: XR CHEST 1V INDICATIONS: chest pain TECHNIQUE: One view of the chest was acquired. COMPARISON: None. FINDINGS: Surgical changes and devices: None. Lungs and pleura: Lungs are clear. No pleural effusions or pneumothorax. Mediastinum: Mediastinal contours appear normal. Heart size is normal. Hiatal hernia. Bones and chest wall: No suspicious bony lesions. Overlying soft tissues appear unremarkable. IMPRESSION: No acute cardiopulmonary abnormality is seen. Dictated by: Gilberto Myers M.D. on 11/15/2023 at 11:06 Approved by: Gilberto Myers M.D. on 11/15/2023 at 11:08
[2023-11-15 10:43] LABS: Add Manual Diff / Slide Review NO; Basophils Absolute Auto 0 /uL (0-100); Basophils Percent Auto 0.8 % (0-2); Eosinophils Absolute Auto 100 /uL (0-450); Eosinophils Percent Auto 1.3 % (2-4); Hemoglobin 13.8 g/dL (12.0-16.0); Lymphocytes Absolute Auto 900 /uL (1100-4500); Lymphocytes Percent Auto 19.7 % (25-40); Mean Corpuscular HGB Conc 33.7 % (30-36); Mean Corpuscular Hemoglobin 29.1 PG (26-34); Mean Corpuscular Volume 86.2 fL (80-100); Monocytes Absolute Auto 600 /uL (0-900); Monocytes Percent Auto 12.1 % (3-14); Neutrophils Absolute Auto 3200 /uL (1500-7000); Neutrophils Percent Auto 66.1 % (50-75); Platelet Count 253 X10^3/uL (150-400); Red Blood Cell Count 4.75 X10^6/uL (4.0-5.2); Red Cell Distribution Width 13.7 % (11.6-14.8); White Blood Cell Count 4.8 X10^3/uL (4.5-11.0)
[2023-11-15 10:57] LABS: PTT Partial Thromboplastin Tim 40 SECONDS (25.1-36.5)
--- NOTE | 2023-11-15 11:11 | ED.URI ---
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 History of reflux, for which she takes pantoprazole. No response shortness of breath to use of an old inhaler, unclear if it is working correctly or if it might be empty. She is here for COVID testing and evaluation of her blood pressure and chest discomfort. She does not have any frequency of urination or flank pain, denies nausea or vomiting, denies diarrhea. Related Data Home Medications Medication Instructions Recorded Confirmed hydrochlorothiazide 12.5 mg tablet 12.5 mg PO DAILY 12/11/22 06/24/23 Previous Rx's Medication Instructions Recorded pantoprazole 40 mg tablet,delayed 40 mg PO DAILY #30 tabs 12/12/22 release albuterol sulfate 90 mcg/actuation 2 puff inhalation Q6H PRN 11/15/23 aerosol inhaler shortness of breath or wheezing #6.7 grams lisinopril 10 mg tablet 10 mg PO DAILY #90 tabs 11/15/23 Allergies Allergy/AdvReac Type Severity Reaction Status Date / Time Sulfa (Sulfonamide Allergy Hives Verified 11/15/23 09:50 Antibiotics) Review of Systems Review of Systems Narrative: See HPI Patient History Medical History (Updated 11/15/23 @ 13:24 by Gilbert Finley MD) History of deep venous thrombosis (DVT) of distal vein of lower extremity (12/28/22) Acute GI bleeding Surgical History (Updated 02/19/23 @ 21:43 by Soy Mcguire MD) History of total left knee replacement (11/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 HEAD: Atraumatic. Normocephalic. EYES: Pupils equal round and reactive. Extraocular motions intact. No scleral icterus. No injection or drainage. ENT: Nose without bleeding, purulent drainage. Throat without erythema, tonsillar hypertrophy or exudate. Airway patent. NECK: Trachea midline. Non tender CARDIOVASCULAR: Regular rate and rhythm without murmurs, gallops, or rubs. RESPIRATORY: Clear to auscultation. Breath sounds equal bilaterally. No wheezes, rales, or rhonchi. GASTROINTESTINAL: Abdomen soft, non-tender, nondistended. EXTREMITIES: No edema or joint tenderness. BACK: Nontender without deformity or crepitance. No flank tenderness. NEURO: AOx3. Neuro exam grossly nonfocal SKIN: No rash or erythema of visible areas Initial Vital Signs Initial Vital Signs: Vital Signs Temperature 97.6 F 11/15/23 09:46 Pulse Rate 60 11/15/23 09:46 Respiratory Rate 17 11/15/23 09:46 Blood Pressure 196/86 H 11/15/23 09:46 Pulse Oximetry 97 11/15/23 09:46 Oxygen Delivery Method Room Air 11/15/23 09:46 Course Orders Ordered: ED Orders 11/15/23 09:51 EKG-12 Lead Stat 11/15/23 10:28 XR chest 1V Stat 11/15/23 10:35 Complete Blood Count AUTO DIFF Stat Comprehensive Metabolic Panel Stat NT-proBNP (BNP-Adult 18+) Stat PTT Partial Thromboplastin Chad Stat Prothrombin Time INR Stat Troponin & CK Cardiac Panel Stat 11/15/23 11:28 Covid-19 + FLU A/B + RSV - PCR Stat Discontinued Medications Albuterol (Albuterol Hfa Mdi 60 Puff/8 Gm Inhaler) 2 puff INH NOW ONE Stop: 11/15/23 11:24 Last Admin: 11/15/23 12:19 Dose: Not Given Documented By: RLS Vital Signs Vital signs: Vital Signs - 8 hr 11/15/23 11:00 11/15/23 11:01 11/15/23 11:01 Pulse Rate 48 L 53 L Respiratory Rate 12 12 Blood Pressure 166/81 H Pulse Oximetry 97 97 Oxygen Delivery Method 11/15/23 11:30 11/15/23 12:00 11/15/23 12:30 Pulse Rate 54 L 45 L 49 L Respiratory Rate 21 15 14 Blood Pressure Pulse Oximetry 98 99 97 Oxygen Delivery Method 11/15/23 13:17 Pulse Rate 56 L Respiratory Rate 18 Blood Pressure 167/96 H Pulse Oximetry 97 Oxygen Delivery Method Room Air MDM - URI/Sore Throat Lab Data Attestation: I reviewed the patient's lab results. 11/15/23 10:35 11/15/23 10:35 Labs: Lab Results 11/15/23 11/15/23 Range/Units 10:35 11:28 WBC 4.8 (4.5-11.0) X10^3/uL RBC 4.75 (4.0-5.2) X10^6/uL Hgb 13.8 (12.0-16.0) g/dL Hct 41.0 (36-46) % MCV 86.2 (80-100) fL MCH 29.1 (26-34) PG MCHC 33.7 (30-36) % RDW 13.7 (11.6-14.8) % Plt Count 253 (150-400) X10^3/uL Neut % (Auto) 66.1 (50-75) % Lymph % (Auto) 19.7 L (25-40) % Coles % (Auto) 12.1 (3-14) % Eos % (Auto) 1.3 L (2-4) % Baso % (Auto) 0.8 (0-2) % Neut # (Auto) 3200 (8759-6497) /uL Lymph # (Auto) 900 L (6199-9581) /uL Coles # (Auto) 600 (0-900) /uL Eos # (Auto) 100 (0-450) /uL Baso # (Auto) 0 (0-100) /uL PT 11.0 (9.4-12.5) SECONDS INR 1.0 (0.9-1.3) APTT 40 H (25.1-36.5) SECONDS Sodium 140 (137-145) mmol/L Potassium 4.2 (3.4-5.1) mmol/L Chloride 108 H (98-107) mmol/L Carbon Dioxide 26 (22-32) mmol/L BUN 14 (7-17) mg/dL Creatinine 0.82 (0.52-1.04) mg/dL Estimated GFR > 60 (>60) mL/min BUN/Creatinine Ratio 17.1 (6-22) Glucose 92 (80-110) mg/dL Calcium 9.2 (8.4-10.2) mg/dL Total Bilirubin 0.8 (0.2-1.3) mg/dL AST 34 (14-36) IU/L ALT 19 (<35) IU/L Alkaline Phosphatase 153 H (38-126) U/L Total Creatine Kinase 63 (30-135) U/L Troponin I < 0.012 (0.01-0.034) ng/mL NT-Pro-B Natriuret Pep 86 (<450) pg/mL Total Protein 6.9 (6.3-8.2) g/dL Albumin 4.0 (3.5-5.0) g/dL Globulin 2.9 (1.7-4.1) g/dL Albumin/Globulin Ratio 1.4 (1.0-2.8) SARS-CoV-2 (PCR) Negative (Negative) Influenza A (RT-PCR) Flu a negative (NEGATIVE) Influenza B (RT-PCR) Flu b negative (NEGATIVE) RSV (PCR) Negative (Negative) Imaging Data Chest x-ray: Radiologist's Impression: [address] [address] XRay Report Signed Patient: Danni Schultz MR#: [id number] : 1945 Acct:[id number] Age/Sex: 78 / F Date of Service: 11/15/23 Loc: ED Accession Number: [id number] Procedure: XR chest 1V Ordering Provider: Gilbert Finley MD PROCEDURE: XR CHEST 1V INDICATIONS: chest pain TECHNIQUE: One view of the chest was acquired. COMPARISON: None. FINDINGS: Surgical changes and devices: None. Lungs and pleura: Lungs are clear. No pleural effusions or pneumothorax. Mediastinum: Mediastinal contours appear normal. Heart size is normal. Hiatal hernia. Bones and chest wall: No suspicious bony lesions. Overlying soft tissues appear unremarkable. IMPRESSION: No acute cardiopulmonary abnormality is seen. Dictated by: Gilberto Myers M.D. on 11/15/2023 at 11:06 Approved by: Gilberto Myers M.D. on 11/15/2023 at 11:08 ECG Data Attestation: I personally reviewed and interpreted this ECG as follows: Interpretation: Sinus bradycardia with rate 47, no obvious ST segment elevation or depression changes. Flat T-waves lead 3 noted. CA 164, QRS 84, QTC 417. 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 COVID and flu negative. Chest x-ray negative. EKG and blood testing unremarkable. Patient would like a refill of her albuterol inhaler, sent to her pharmacy Discharge Plan Departure Patient Disposition: Home Clinical Impression: Upper respiratory infection, SOB (shortness of breath) Activity Restrictions/Additional Instructions: Recent cough with some shortness of breath. Chest x-ray unremarkable, EKG and blood testing screens unremarkable. Nasal swab negative for COVID/influenza. History of inhaler use, refill sent to your pharmacy to use as needed. Consider recheck of COVID screening in the next couple of days if symptoms persist. Follow up with your regular provider if symptoms persisting next couple of days. Continue use of your blood pressure medications as prescribed for now. Continue use of your antacid as prescribed for now. Return to this/nearest emergency department for any change worsening symptoms or any concerns prior Prescriptions: New albuterol sulfate 90 mcg/actuation HFA aerosol inhaler 2 puff inhalation Q6H PRN (Reason: shortness of breath or wheezing) Qty: 6.7 0RF No Action lisinopril 10 mg tablet 10 mg PO DAILY MDD Take 1 tablet daily Qty: 90 4RF hydrochlorothiazide 12.5 mg tablet 12.5 mg PO DAILY pantoprazole 40 mg tablet,delayed release (DR/EC) 40 mg PO DAILY Qty: 30 1RF Referrals: Soy Mcguire MD [Primary Care Provider] - Stand Alone Forms: Patient Portal/API
[2023-11-15 11:21] LABS: Alanine Aminotransferase 19 IU/L (<35); Albumin Globulin Ratio 1.4 (1.0-2.8); Alkaline Phosphatase 153 U/L (38-126); Aspartate Aminotransferase 34 IU/L (14-36); BUN Creatinine Ratio 17.1 (6-22); Bilirubin Total 0.8 mg/dL (0.2-1.3); Blood Urea Nitrogen 14 mg/dL (7-17); Calcium 9.2 mg/dL (8.4-10.2); Carbon Dioxide 26 mmol/L (22-32); Chloride 108 mmol/L (98-107); Creatine Kinase 63 U/L (30-135); Estimated Glomerular Filt Rate > 60 mL/min (>60); Globulin 2.9 g/dL (1.7-4.1); Glucose 92 mg/dL (80-110); HEMOLYSIS < 15 (0-50); Potassium 4.2 mmol/L (3.4-5.1); Sodium 140 mmol/L (137-145); Total Protein 6.9 g/dL (6.3-8.2)
[2023-11-15 11:33] LABS: NT-proBNP (BNP-Adult 18+) 86 pg/mL (<450); Troponin I < 0.012 ng/mL (0.01-0.034)
--- NOTE | 2023-11-15 12:19 | PC.NURSE ---
pt took her lisinopril 10 mg po.
[2023-11-15 13:09] LABS: Influenza A - CEPHEID Flu A NEGATIVE (NEGATIVE); Influenza B - CEPHEID Flu B NEGATIVE (NEGATIVE); Respiratory Syncytial Virus Negative (Negative)
[2023-11-15 15:28] LABS: COVID-19 CEPHEID 4-PLEX PCR Negative (Negative)
== END 2023-11-15 13:36 | disposition home or self-care (01) ==
PROVIDERS: Emergency Provider Emergency Medicine; PCP Family Medicine
DX: J06.9 Acute upper respiratory infection, unspecified (principal); R06.02 Shortness of breath; R07.9 Chest pain, unspecified; Z11.52 Encounter for screening for COVID-19
CPT/HCPCS: 0241U; 36415; 71045; 80053; 82550; 83880; 84484; 85025; 85610; 85730; 93005; 99284; A9270

== ENCOUNTER → 2024-09-19 08:43 | Outpatient (CLI) | payer MEDICARE, SELFPAY ==
[2023-02-01 10:37] VITALS: BMI 25.6
[2024-09-19 10:02] LABS: Add Manual Diff / Slide Review NO; Basophils Absolute Auto 0 /uL (0-100); Basophils Percent Auto 0.6 % (0-2); Eosinophils Absolute Auto 0 /uL (0-450); Hematocrit 42.7 % (36-46); Hemoglobin 14.5 g/dL (12.0-16.0); Lymphocytes Absolute Auto 900 /uL (1100-4500); Lymphocytes Percent Auto 19.5 % (25-40); Mean Corpuscular HGB Conc 33.9 % (30-36); Mean Corpuscular Hemoglobin 29.7 PG (26-34); Mean Corpuscular Volume 87.4 fL (80-100); Monocytes Absolute Auto 500 /uL (0-900); Monocytes Percent Auto 10.1 % (3-14); Neutrophils Absolute Auto 3300 /uL (1500-7000); Neutrophils Percent Auto 68.8 % (50-75); Platelet Count 261 X10^3/uL (150-400); Red Blood Cell Count 4.88 X10^6/uL (4.0-5.2); Red Cell Distribution Width 13.7 % (11.6-14.8); White Blood Cell Count 4.8 X10^3/uL (4.5-11.0)
[2024-09-19 10:11] LABS: D Dimer 580 ng/ml (<500)
[2024-09-19 10:13] LABS: HEMOLYSIS < 15 (0-50)
[2024-09-19 10:15] LABS: Alanine Aminotransferase 18 IU/L (<35); Albumin 4.4 g/dL (3.5-5.0); Albumin Globulin Ratio 1.5 (1.0-2.8); Alkaline Phosphatase 166 U/L (38-126); Aspartate Aminotransferase 28 IU/L (14-36); BUN Creatinine Ratio 17.2 (6-22); Bilirubin Total 1.1 mg/dL (0.2-1.3); Blood Urea Nitrogen 15 mg/dL (7-17); C-Reactive Protein Quant 0.6 mg/dL (<1.0); Calcium 9.7 mg/dL (8.4-10.2); Carbon Dioxide 26 mmol/L (22-32); Chloride 103 mmol/L (98-107); Cholesterol 222 mg/dL (140-199); Estimated Glomerular Filt Rate > 60 mL/min (>60); Gamma Glutamyl Transpeptidase 18 U/L (12-43); Glucose 88 mg/dL (70-99); HDL Cholesterol 69 mg/dL (40-60); HEMOLYSIS < 15 (0-50); LDL Cholesterol Calculated 126 mg/dL (<100); Potassium 4.4 mmol/L (3.4-5.1); Sodium 140 mmol/L (137-145); Total Protein 7.4 g/dL (6.3-8.2); Triglycerides 135 mg/dL (35-150)
[2024-09-19 10:33] LABS: Total Iron Binding Capacity 357 ug/dL (265-497); Transferrin 311 mg/dL (206-381)
[2024-09-19 10:46] LABS: Cortisol AM (Before 10AM) 11.2 ug/dL (4.46-22.7)
[2024-09-19 10:49] LABS: Ferritin 20 ng/mL (11-264)
[2024-09-19 10:50] LABS: TSH w/ Reflex to FT4 2.01 uIU/mL (0.47-4.68)
[2024-09-19 10:55] LABS: Vitamin D 25 Hydroxy (D3) 20.1 ng/mL (30.0-100.0)
[2024-09-19 11:17] LABS: Microalbumin Urine Random 0.9 mg/dL (0-1.6)
[2024-09-19 11:26] LABS: Iron 91 ug/dL (37-170); Percent Iron Saturation 25 % (15-50)
[2024-09-20 06:28] LABS: HSV 1 IGG Non Reactive (Non Reactive); HSV 2 IGG Non Reactive (Non Reactive)
[2024-09-20 10:10] LABS: EBV Nuclear Antigen Ab IgG <18.0 U/mL (0.0-17.9)
== END ==
PROVIDERS: PCP Family Medicine; Referring Provider Family Medicine; Visit Provider Family Medicine
DX: D50.9 Iron deficiency anemia, unspecified (principal); R74.8 Abnormal levels of other serum enzymes; R53.83 Other fatigue; R05.3 Chronic cough; R53.82 Chronic fatigue, unspecified; Z86.16 Personal history of COVID-19; I10 Essential (primary) hypertension; Z13.220 Encounter for screening for lipoid disorders
CPT/HCPCS: 36415; 80053; 80061; 82043; 82306; 82533; 82570; 82728; 82977; 83520; 83540; 83550; 84443; 85025; 85379; 86038; 86140; 86147; 86148; 86644; 86664; 86695; 86696; 87798